=== PATIENT | male | born 1980 | race Caucasian/White ===

== ENCOUNTER 2017-04-05 10:39 | Emergency (ER) | payer OTHER ==
[~2017-04-05] VITALS: Ht 167.6 cm; Wt 76.2 kg
[~2017-04-05 10:39] MED LIST: CLONAZEPAM1 M2 PO; ELIQUIS2.5 M1 PO; HYDROXYZINE HCL25 MG PO; OXYCODONE HCL20 M2 PO; RELPAX40 M1 PO; ZOLPIDEM TARTRA10 M1 PO
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
[2017-04-05 12:39] LABS: ABSOLUTE BASOPHIL COUNT 0 /CUMM (0.0-0.2); ABSOLUTE EOSINOPHIL COUNT 0.3 /CUMM (0.0-0.7); ABSOLUTE GRANULOCYTE CT 6.5 /CUMM (1.4-6.5); ABSOLUTE LYMPH COUNT 1.8 /CUMM (1.2-3.4); ABSOLUTE MONOCYTE COUNT 0.3 /CUMM (0.10-0.60); BASOPHIL % 0.3 % (0.0-2.0); EOSINOPHIL % 3.6 % (0-5); GRANULOCYTE % 71.9 % (42.2-75.2); HEMATOCRIT 37.7 % (42-52); MEAN CORPUSCULAR HGB 27.8 PG (27.0-31.0); MEAN CORPUSCULAR HGB CONC 32.8 G/DL (33.0-37.0); MEAN CORPUSCULAR VOLUME 84.7 FL (80.0-94.0); MEAN PLATELET VOLUME 7.6 FL (7.4-10.4); PLATELET COUNT 252 /CUMM (130-400); RED BLOOD CELL CT 4.45 /CUMM (4.70-6.10); WHITE BLOOD CELL COUNT 9.1 /CUMM (4.8-10.8)
[2017-04-05 13:53] VITALS: BP 119/63
[2017-04-05] MEDS ORDERED: IBUPROFEN800 M1 PO (14:06)
[2017-04-05] MEDS ORDERED: GABAPENTIN300 M2 PO (14:07)
[2017-04-05] MEDS ORDERED: METHADONE HCL10 M1 PO (14:10)
== END 2017-04-05 14:12 ==
LOC: ERH 10:39
PROVIDERS: Emergency Medicine
DX: K62.5 Hemorrhage of anus and rectum (principal)

== ENCOUNTER 2018-02-18 15:01 | Inpatient (IN) | payer OTHER ==
[~2018-02-18] VITALS: Ht 167.6 cm; Wt 82.1 kg
[~2018-02-18 15:01] MED LIST changes: +CYCLOBENZAPRINE10 M1 PO; +GABAPENTIN300 M2 PO; +IBUPROFEN800 M1 PO; +METHADONE HCL10 M1 PO; +TYLENOL WITH C1 EACH PO
[2018-02-18 16:14] LABS: ABSOLUTE BASOPHIL COUNT 0 /CUMM (0.0-0.2); ABSOLUTE EOSINOPHIL COUNT 0.2 /CUMM (0.0-0.7); ABSOLUTE GRANULOCYTE CT 4.7 /CUMM (1.4-6.5); ABSOLUTE LYMPH COUNT 2.1 /CUMM (1.2-3.4); ABSOLUTE MONOCYTE COUNT 0.8 /CUMM (0.10-0.60); BASOPHIL % 0.3 % (0.0-2.0); EOSINOPHIL % 2.2 % (0-5); GRANULOCYTE % 60.5 % (42.2-75.2); HEMATOCRIT 41.1 % (42-52); MEAN CORPUSCULAR HGB 26.5 PG (27.0-31.0); MEAN CORPUSCULAR HGB CONC 31.8 G/DL (33.0-37.0); MEAN CORPUSCULAR VOLUME 83.2 FL (80.0-94.0); PLATELET COUNT 263 /CUMM (130-400); RBC DISTRIBUTION WIDTH 14.7 % (11.5-14.5); RED BLOOD CELL CT 4.94 /CUMM (4.70-6.10); WHITE BLOOD CELL COUNT 7.7 /CUMM (4.8-10.8)
--- NOTE | 2018-02-18 17:29 | ULTRASOUND REPORT ---
EXAMINATION: US SUPERFICIAL IMAGING, EXTREMITY, RIGHT CLINICAL INFORMATION: Erythema. IV drug use history. Evaluate necrotizing fasciitis versus abscess. Right posterior/lateral triceps/humeral induration. COMPARISON: None TECHNIQUE: Focused ultrasound of the patient's area of skin erythema, induration and eschar was performed with real-time assessment by the reading radiologist. FINDINGS: There is mild thickening and edema of the subcutaneous tissues, measuring up to 0.3 cm in thickness. No significant hyperemia is noted with color Doppler imaging. No superficial or deep focal fluid collection is seen. No definite dirty shadowing is identified to suspect air locules in the subcutaneous tissues, though evaluation for subcutaneous emphysema is limited by ultrasound. In the right axilla, no significant adenopathy is seen. IMPRESSION: Superficial edema and thickening of the subcutaneous tissues is seen without focal fluid collection. Findings are consistent with a cellulitis. As discussed above, no definite subcutaneous emphysema is identified, though evaluation is limited in this regard by ultrasound. Depending on clinical circumstances, consider plain film assessment for ruling out subcutaneous emphysema.
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
--- NOTE | 2018-02-18 20:41 | RADIOLOGY REPORT ---
EXAMINATION: XR HUMERUS, RIGHT CLINICAL INFORMATION: Pain and swelling. COMPARISON: None TECHNIQUE: AP and lateral views of the right humerus. FINDINGS: No osseous abnormality is seen. No gas is seen within the soft tissues. The imaged portions of the right lung are aerated. IMPRESSION: No acute osseous abnormality. No gas visible in the soft tissues of the right arm.
[2018-02-18 22:14] VITALS: BP 130/70
--- NOTE | 2018-02-19 06:04 | Admission Certification ---
Admission Certification Certification Statement - As attending physician, I certify that at the time of - admission, based on clinical presentation, severity of - symptoms, need for further diagnostic testing and - therapeutic interventions, and risk of adverse outcomes - without in-hospital treatment, in my clinical assessment, - this patient requires an acute hospital stay for a minimum - of two nights or longer. I have also considered psychsocial - factors such as support system, advanced age, financial - issues, cognitive issues, and failed out-patient treatments, - past re-admission history, safety of patient, and lack of - compliance as applicable. Specific rationale supporting this admission is: Right arm cellulitis
[2018-02-19 06:54] VITALS: BP 106/64
[2018-02-19 08:43] LABS: ABSOLUTE BASOPHIL COUNT 0 /CUMM (0.0-0.2); ABSOLUTE EOSINOPHIL COUNT 0.2 /CUMM (0.0-0.7); ABSOLUTE GRANULOCYTE CT 3.6 /CUMM (1.4-6.5); ABSOLUTE LYMPH COUNT 1.9 /CUMM (1.2-3.4); ABSOLUTE MONOCYTE COUNT 0.6 /CUMM (0.10-0.60); RED BLOOD CELL CT 4.17 /CUMM (4.70-6.10); WHITE BLOOD CELL COUNT 6.4 /CUMM (4.8-10.8)
[2018-02-19 08:57] LABS: BASOPHIL % 0.4 % (0.0-2.0); EOSINOPHIL % 3.1 % (0-5); GRANULOCYTE % 56.7 % (42.2-75.2); MEAN CORPUSCULAR HGB 27.8 PG (27.0-31.0); MEAN CORPUSCULAR HGB CONC 33.6 G/DL (33.0-37.0); MEAN CORPUSCULAR VOLUME 82.7 FL (80.0-94.0); MEAN PLATELET VOLUME 7.3 FL (7.4-10.4); PLATELET COUNT 225 /CUMM (130-400); RBC DISTRIBUTION WIDTH 15.1 % (11.5-14.5)
[2018-02-19 09:12] LABS: HEMATOCRIT 34.5 % (42-52)
--- NOTE | 2018-02-19 09:28 | PN- Housestaff ---
Subjective Follow-up For: Cellulitis vs bug bite necrosis Subjective: No acute events overnight. Patient states that the thinks the pain erythema is getting larger. States that the dark erythema around the black eschar is tender to palpation. Requesting methadone Review of Systems Constitutional: Reports: see HPI. Objective Last 24 Hrs of Vital Signs/I&O Vital Signs Date Time Temp Pulse Resp B/P B/P Pulse O2 O2 Flow FiO2 Mean Ox Delivery Rate 02/19 1455 98.1 90 20 118/76 94 Room Air 02/19 0654 98.4 65 18 106/64 97 Trach Mask 02/18 2214 98.0 75 20 130/70 94 Room Air 02/18 2149 Room Air 02/18 2107 97.8 72 18 141/89 96 Room Air Intake & Output 02/19 1600 02/19 0800 02/19 0000 Intake Total 240 250 Output Total Balance 240 250 Intake, IV 250 Intake, Oral 240 Patient 181 lb Weight Weight Reported by Patient Measurement Method Physical Exam General Appearance: Alert, Oriented X3, Cooperative, No Acute Distress Skin: 2.5" x 1.5" circular black eschar in the right upper extremity, IVDU track zimmer at right elbow Cardiovascular: Regular Rate, Normal S1, Normal S2 Lungs: Clear to Auscultation, Normal Air Movement Abdomen: Normal Bowel Sounds, Soft, No Tenderness Extremities: 2+ radial pulses Current Medications: Current Medications Sig/Shelbie Start time Last Medication Dose Route Stop Time Status Admin Acetaminophen 650 MG Q4P PRN 02/19 0345 AC PO Acetaminophen 1,000 MG ONCE ONE 02/18 2030 DC 02/18 N/A 1 UNIT IV 02/18 Acetaminophen 0 .STK-MED ONE 02/19 2028 DC IV Ampicillin Sodium/ 3,000 MG Q6 02/19 1800 AC Sulbactam Sodium IV Sodium Chloride 100 ML Ampicillin Sodium/ 3,000 MG Q6 02/19 0430 DC 02/19 Sulbactam Sodium IV 1201 Sodium Chloride 100 ML Ampicillin Sodium/ 3,000 MG ONCE ONE 02/19 2000 DC 02/18 Sulbactam Sodium IV 02/18 Sodium Chloride 100 ML Ampicillin Sodium/ 0 .STK-MED ONE 02/18 1959 DC Sulbactam Sodium .ROUTE Clonazepam 1 MG AT BEDTIME 02/19 2200 AC PO 02/26 2159 Enoxaparin Sodium 40 MG DAILY 02/19 1000 AC 02/19 SC 1201 Gabapentin 300 MG TID 02/19 1000 AC 02/19 PO 1324 Ketorolac 0 .STK-MED ONE 02/19 2044 DC Tromethamine .ROUTE Ketorolac 30 MG ONCE ONE 02/19 2000 DC 02/18 Tromethamine IV 02/18 Methadone HCl 65 MG DAILY 02/20 0700 AC PO Methadone HCl 65 MG ONCE ONE 02/19 1100 DC 02/19 PO 02/19 1101 1200 Nicotine 21 MG DAILY 02/19 1100 AC 02/19 TOP 1201 Tramadol HCl 50 MG Q6 02/19 0600 DC PO Tramadol HCl 50 MG Q6 PRN 02/19 0515 AC 02/19 PO 1200 Tramadol HCl 50 MG Q4 PRN 02/19 0200 AC 02/19 PO 0535 Tramadol HCl 50 MG ONCE ONE 02/18 2245 DC 02/18 PO 02/18 2246 2247 Last 24 Hrs of Lab/Herman Results Last 24 Hrs of Labs/Mics: Laboratory Tests 02/19/18 1436: Rheum Factor Semi-Quant Pending 02/19/18 1436: ESR Westergren Pending, AWILDA Titer Pending, Anti-Nuclear Antibody Pending, Lyme Disease Antibody Pending 02/19/18 0605: Anion Gap 12, Estimated GFR > 60, BUN/Creatinine Ratio 28.8 H, Creatine Kinase 21 L, CBC w Diff NO MAN DIFF REQ, RBC 4.17 L, MCV 82.7, MCH 27.8, MCHC 33.6, RDW 15.1 H, MPV 7.3 L, Gran % 56.7, Lymphocytes % 30.1, Monocytes % 9.7 H, Eosinophils % 3.1, Basophils % 0.4, Absolute Granulocytes 3.6, Absolute Lymphocytes 1.9, Absolute Monocytes 0.6, Absolute Eosinophils 0.2, Absolute Basophils 0, Hepatitis A IgM Ab NONREACTIVE, Hep Bs Antigen NONREACTIVE, Hep B Core IgM Ab Conf NONREACTIVE, Hepatitis C Antibody NONREACTIVE, HIV 1&2 Ab Western Blot NONREACTIVE 02/19/18 0025: Urine Opiates Screen > 4000.00 H, Methadone Screen > 735 H, Barbiturate Screen < 60, Ur Phencyclidine Scrn < 6.00, Amphetamines Screen 114, U Benzodiazepines Scrn < 85, Urine Cocaine Screen < 50, Urine Cannabis Screen < 5.00 02/18/18 1857: Lactic Acid Cancelled Assessment/Plan Assessment: Mr. Charles is a 37 yo m with a PMH significant for IV drug abuse on methadone ([facility]), chronic pain disorder, depression, anxiety, OA, disc herniation who presents to the ED with a suspected insect bite vs IV drug use causing necrosis of his lateral RUE. Problem list: Right arm cellulitis vs necrosis - maybe secondary to insect bite vs IV drug use Plan: -ultrasound did not reveal any fluid collection, x-ray does not show any bone changes or tissue gas -Follow-up surgery consult for biopsy of eschar: path+ routine, AFB, fungal -cont IV Unasyn -Methadone confirmed at 65 mg daily -start nicotine patch, cont clonazepam -Follow-up Lyme titer, ESR, rheumatoid factor, and AWILDA -f/u blood cx -Hepatitis and HIV negative -Consider MRI if patient reports right hip pain s/p right hip replacement to evaluate for spreading of infection Diet: Heart healthy DVT ppx: sc Enoxaparin Code: FULL Problem List: 1. Cellulitis Pain Ratin Pain Location: r arm Pain Goal: Pain 4 or less Pain Plan: pain pathway Tomorrow's Labs & Rationales: cbc
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
--- NOTE | 2018-02-19 12:33 | PN- Att Addend ---
Attending Addendum Attending Brief Note Patient seen and examined, feels the same. The right arm necrosis and cellulitis area still looks bad. Vital Signs Date Time Temp Pulse Resp B/P B/P Pulse O2 O2 Flow FiO2 Mean Ox Delivery Rate 02/19 0654 98.4 65 18 106/64 97 Trach Mask 02/18 2214 98.0 75 20 130/70 94 Room Air 02/18 2149 Room Air 02/18 2107 97.8 72 18 141/89 96 Room Air 02/18 1557 98.9 98 16 97 Room Air one exam; aox3, nad. cv; s1,s2, rrr resp; clear abd; soft, nt, bs+ ext; no edema skin: + indurated, erythematous area with warmth and central necrotic looking skin on right arm lateral side. Laboratory Tests 02/19 02/19 0605 0025 Chemistry Sodium (137 - 145 mmol/L) 143 Potassium (3.5 - 5.1 mmol/L) 4.0 Chloride (98 - 107 mmol/L) 103 Carbon Dioxide (22 - 30 mmol/L) 28 Anion Gap (5 - 16) 12 BUN (9 - 20 mg/dL) 23 H Creatinine (0.7 - 1.2 mg/dL) 0.8 Estimated GFR (>60 ml/min) > 60 BUN/Creatinine Ratio (7 - 25 %) 28.8 H Creatine Kinase (55 - 170 U/L) 21 L Hematology CBC w Diff NO MAN DIFF REQ WBC (4.8 - 10.8 /CUMM) 6.4 RBC (4.70 - 6.10 /CUMM) 4.17 L Hgb (14.0 - 18.0 G/DL) 11.6 L Hct (42 - 52 %) 34.5 L MCV (80.0 - 94.0 FL) 82.7 MCH (27.0 - 31.0 PG) 27.8 MCHC (33.0 - 37.0 G/DL) 33.6 RDW (11.5 - 14.5 %) 15.1 H Plt Count (130 - 400 /CUMM) 225 MPV (7.4 - 10.4 FL) 7.3 L Gran % (42.2 - 75.2 %) 56.7 Lymphocytes % (20.5 - 51.1 %) 30.1 Monocytes % (1.7 - 9.3 %) 9.7 H Eosinophils % (0 - 5 %) 3.1 Basophils % (0.0 - 2.0 %) 0.4 Absolute Granulocytes (1.4 - 6.5 /CUMM) 3.6 Absolute Lymphocytes (1.2 - 3.4 /CUMM) 1.9 Absolute Monocytes (0.10 - 0.60 /CUMM) 0.6 Absolute Eosinophils (0.0 - 0.7 /CUMM) 0.2 Absolute Basophils (0.0 - 0.2 /CUMM) 0 Serology Hepatitis A IgM Ab (NONREACTIVE) NONREACTIVE Hep Bs Antigen (NONREACTIVE) NONREACTIVE Hep B Core IgM Ab Conf (NONREACTIVE) NONREACTIVE Hepatitis C Antibody (NONREACTIVE) NONREACTIVE HIV 1&2 Ab Western Blot (NONREACTIVE) NONREACTIVE Toxicology Urine Opiates Screen (>2000 NG/ML) > 4000.00 H Methadone Screen (>300 NG/ML) > 735 H Barbiturate Screen (>200 NG/ML) < 60 Ur Phencyclidine Scrn (>25 NG/ML) < 6.00 Amphetamines Screen (>1000 NG/ML) 114 U Benzodiazepines Scrn (>200 NG/ML) < 85 Urine Cocaine Screen (>300 NG/ML) < 50 Urine Cannabis Screen (>50 NG/ML) < 5.00 02/18 02/18 1857 1605 Chemistry Sodium (137 - 145 mmol/L) 144 Potassium (3.5 - 5.1 mmol/L) 3.8 Chloride (98 - 107 mmol/L) 102 Carbon Dioxide (22 - 30 mmol/L) 26 Anion Gap (5 - 16) 15 BUN (9 - 20 mg/dL) 21 H Creatinine (0.7 - 1.2 mg/dL) 0.9 Estimated GFR (>60 ml/min) > 60 BUN/Creatinine Ratio (7 - 25 %) 23.3 Glucose (65 - 99 mg/dL) 104 H Lactic Acid Cancelled Calcium (8.4 - 10.2 mg/dL) 9.6 Total Bilirubin (0.2 - 1.3 mg/dL) 0.5 AST (17 - 59 U/L) 20 ALT (21 - 72 U/L) 43 Alkaline Phosphatase (< 127 U/L) 120 Creatine Kinase (55 - 170 U/L) 33 L Total Protein (6.3 - 8.2 g/dL) 8.3 H Albumin (3.5 - 5.0 g/dL) 4.3 Globulin (1.9 - 4.2 gm/dL) 4.0 Albumin/Globulin Ratio (1.1 - 2.2 %) 1.1 Hematology CBC w Diff NO MAN DIFF REQ WBC (4.8 - 10.8 /CUMM) 7.7 RBC (4.70 - 6.10 /CUMM) 4.94 Hgb (14.0 - 18.0 G/DL) 13.1 L Hct (42 - 52 %) 41.1 L MCV (80.0 - 94.0 FL) 83.2 MCH (27.0 - 31.0 PG) 26.5 L MCHC (33.0 - 37.0 G/DL) 31.8 L RDW (11.5 - 14.5 %) 14.7 H Plt Count (130 - 400 /CUMM) 263 MPV (7.4 - 10.4 FL) 7.0 L Gran % (42.2 - 75.2 %) 60.5 Lymphocytes % (20.5 - 51.1 %) 27.2 Monocytes % (1.7 - 9.3 %) 9.8 H Eosinophils % (0 - 5 %) 2.2 Basophils % (0.0 - 2.0 %) 0.3 Absolute Granulocytes (1.4 - 6.5 /CUMM) 4.7 Absolute Lymphocytes (1.2 - 3.4 /CUMM) 2.1 Absolute Monocytes (0.10 - 0.60 /CUMM) 0.8 H Absolute Eosinophils (0.0 - 0.7 /CUMM) 0.2 Absolute Basophils (0.0 - 0.2 /CUMM) 0 A/P; 37 y/o M with pmh sig for nicotine dependence (1PPD x > 20 yrs), IV drug abuse on methadone ([facility]), chronic pain disorder, depression, anxiety, OA, disc herniation, admitted with right arm cellulitis. Patient also has necrotic-looking area in the center. Currently on Unasyn. Appreciate infectious disease input. Ultrasound was negative for any abscess. Discussed with Dr. Contreras. We'll follow his recommendations about checking But he also recommends getting a skin biopsy. Please consult surgery. Please confirm the dose of his methadone from his methadone clinic. Agree with using tramadol for pain management. We'll follow-up on the blood cultures. DVT px; Lovenox.
[2018-02-19 14:55] VITALS: BP 118/76
[2018-02-19 21:59] VITALS: BP 130/64
[2018-02-20 06:48] VITALS: BP 124/62
[2018-02-20 08:15] LABS: ABSOLUTE BASOPHIL COUNT 0 /CUMM (0.0-0.2); ABSOLUTE EOSINOPHIL COUNT 0.2 /CUMM (0.0-0.7); ABSOLUTE GRANULOCYTE CT 3.8 /CUMM (1.4-6.5); ABSOLUTE LYMPH COUNT 2.2 /CUMM (1.2-3.4); ABSOLUTE MONOCYTE COUNT 0.5 /CUMM (0.10-0.60); BASOPHIL % 0.5 % (0.0-2.0); EOSINOPHIL % 3.1 % (0-5); GRANULOCYTE % 56.7 % (42.2-75.2); HEMATOCRIT 32.6 % (42-52); MEAN CORPUSCULAR HGB 27.5 PG (27.0-31.0); MEAN CORPUSCULAR VOLUME 83.3 FL (80.0-94.0); MEAN PLATELET VOLUME 7.1 FL (7.4-10.4); PLATELET COUNT 226 /CUMM (130-400); RBC DISTRIBUTION WIDTH 14.9 % (11.5-14.5); RED BLOOD CELL CT 3.91 /CUMM (4.70-6.10); WHITE BLOOD CELL COUNT 6.8 /CUMM (4.8-10.8)
--- NOTE | 2018-02-20 10:57 | PN- Housestaff ---
Subjective Follow-up For: Cellulitis vs bug bite necrosis Subjective: No acute events overnight. Patient states that the hardness and swelling are increasing. States that the symptoms are getting worse. Review of Systems Constitutional: Reports: see HPI. Objective Last 24 Hrs of Vital Signs/I&O Vital Signs Date Time Temp Pulse Resp B/P B/P Pulse O2 O2 Flow FiO2 Mean Ox Delivery Rate 02/20 1445 97.9 99 20 150/78 95 Room Air 02/20 0648 97.9 79 18 124/62 91 02/19 2159 98.6 79 20 130/64 93 Room Air Intake & Output 02/20 1600 02/20 0800 02/20 0000 Intake Total 850 240 480 Output Total Balance 850 240 480 Intake, IV 250 Intake, Oral 600 240 480 Number 1 Bowel Movements Physical Exam General Appearance: Alert, Oriented X3, Cooperative, Mild Distress Skin: 2.5 x 1.5" circular eschar and right upper extremity. worsening dark dusky redness around black eschar. Eschar now blistering IVDU track zimmer of right anterior elbow. Cardiovascular: Regular Rate, Normal S1, Normal S2 Lungs: Clear to Auscultation, Normal Air Movement Abdomen: Normal Bowel Sounds, Soft, No Tenderness Extremities: 2+ radial pulses Current Medications: Current Medications Sig/Shelbie Start time Last Medication Dose Route Stop Time Status Admin Acetaminophen 650 MG Q4P PRN 02/19 0345 AC PO Ampicillin Sodium/ 3,000 MG Q6 02/19 1800 DC 02/20 Sulbactam Sodium IV 1352 Sodium Chloride 100 ML Clonazepam 1 MG AT BEDTIME 02/19 2200 AC 02/19 PO 02/26 2159 2330 Enoxaparin Sodium 40 MG DAILY 02/19 1000 AC 02/20 SC 0900 Gabapentin 300 MG TID 02/19 1000 AC 02/20 PO 0859 Levofloxacin 750 MG 2200 02/20 2200 AC PO Methadone HCl 65 MG DAILY 02/20 0700 AC 02/20 PO 0521 Nicotine 21 MG DAILY 02/19 1100 AC 02/20 TOP 0900 Patient Medication 1 ED ONE ONE 02/20 1130 DC 02/20 Teaching ED 02/20 1131 1355 Tramadol HCl 50 MG Q6 PRN 02/19 0515 AC 02/20 PO 1355 Tramadol HCl 50 MG Q4 PRN 02/19 0200 DC 02/19 PO 0535 Last 24 Hrs of Lab/Herman Results Last 24 Hrs of Labs/Mics: Laboratory Tests 02/20/18 0600: CBC w Diff NO MAN DIFF REQ, RBC 3.91 L, MCV 83.3, MCH 27.5, MCHC 33.0, RDW 14.9 H, MPV 7.1 L, Gran % 56.7, Lymphocytes % 31.9, Monocytes % 7.8, Eosinophils % 3.1, Basophils % 0.5, Absolute Granulocytes 3.8, Absolute Lymphocytes 2.2, Absolute Monocytes 0.5, Absolute Eosinophils 0.2, Absolute Basophils 0 Assessment/Plan Assessment: Mr. Charles is a 37 yo m with a PMH significant for IV drug abuse on methadone ([facility]), chronic pain disorder, depression, anxiety, OA, disc herniation who presents to the ED with a suspected insect bite vs IV drug use causing necrosis of his lateral RUE. Problem list: Right arm cellulitis vs necrosis - maybe secondary to insect bite vs IV drug use ?ecthyma gangrenosum Plan: -Follow-up surgery consult for biopsy of eschar: path+ routine, AFB, fungal -f/u RF -Discontinued IV Unasyn. Start levofloxacin after biopsy -ultrasound did not reveal any fluid collection, x-ray does not show any bone changes or tissue gas -Methadone confirmed at 65 mg daily -start nicotine patch, cont clonazepam, gabapentin -Negative Lyme titer, ESR, rheumatoid factor, and AWILDA -f/u blood cx -Hepatitis and HIV negative -Consider MRI if patient reports right hip pain s/p right hip replacement to evaluate for spreading of infection Diet: Heart healthy DVT ppx: sc Enoxaparin Code: FULL Problem List: 1. Cellulitis Pain Ratin Pain Location: R arm Pain Goal: Pain 4 or less Pain Plan: pain pathway Tomorrow's Labs & Rationales: cbc bep
--- NOTE | 2018-02-20 14:00 | PN- Att Addend ---
Attending Addendum Attending Brief Note Patient seen and examined, not improved. He is very concerned that the eschar looking skin on his arm is now blistering. Vital Signs Date Time Temp Pulse Resp B/P B/P Pulse O2 O2 Flow FiO2 Mean Ox Delivery Rate 02/20 0648 97.9 79 18 124/62 91 02/19 2159 98.6 79 20 130/64 93 Room Air 02/19 1455 98.1 90 20 118/76 94 Room Air on exam; aox3, nad. cv; s1,s2, rrr resp; clear abd; soft, nt, bs+ ext; no edema skin: + indurated, erythematous area with warmth and central necrotic looking skin on right arm lateral side which is now blistering. Laboratory Tests 02/20 02/19 0600 1436 Hematology CBC w Diff NO MAN DIFF REQ WBC (4.8 - 10.8 /CUMM) 6.8 RBC (4.70 - 6.10 /CUMM) 3.91 L Hgb (14.0 - 18.0 G/DL) 10.8 L Hct (42 - 52 %) 32.6 L MCV (80.0 - 94.0 FL) 83.3 MCH (27.0 - 31.0 PG) 27.5 MCHC (33.0 - 37.0 G/DL) 33.0 RDW (11.5 - 14.5 %) 14.9 H Plt Count (130 - 400 /CUMM) 226 MPV (7.4 - 10.4 FL) 7.1 L Gran % (42.2 - 75.2 %) 56.7 Lymphocytes % (20.5 - 51.1 %) 31.9 Monocytes % (1.7 - 9.3 %) 7.8 Eosinophils % (0 - 5 %) 3.1 Basophils % (0.0 - 2.0 %) 0.5 Absolute Granulocytes (1.4 - 6.5 /CUMM) 3.8 Absolute Lymphocytes (1.2 - 3.4 /CUMM) 2.2 Absolute Monocytes (0.10 - 0.60 /CUMM) 0.5 Absolute Eosinophils (0.0 - 0.7 /CUMM) 0.2 Absolute Basophils (0.0 - 0.2 /CUMM) 0 Immunology Rheum Factor Semi-Quant (<12 IU/Ml) < 8.6 02/19 1436 Hematology ESR Westergren (0 - 10 MM) 65 H Immunology AWILDA Titer ND Anti-Nuclear Antibody (NEG,1:40) NEG 1:40 IFA ASSAY Serology Lyme Disease Antibody (RATIO) 0.18 A/P: 37 y/o M with pmh sig for nicotine dependence (1PPD x > 20 yrs), IV drug abuse on methadone ([facility]), chronic pain disorder, depression, anxiety, OA, disc herniation, admitted with right arm cellulitis with necrosis and eschar looking 80 in the center which is now blistering. Lyme antibody, AWILDA, rheumatoid factor, HIV antibody, Lyme antibody, hepatitis panel negative. Patient currently on Unasyn. So far blood cultures are negative. White count to justice normal and patient amends afebrile. Surgical consult was called yesterday but still elevated. We'll call them again today. Patient will need skin biopsy per infectious disease. We'll discuss with infectious disease about further recommendations. Continue current pain management. Patient on Lovenox for DVT prophylaxis.
[2018-02-20 14:45] VITALS: BP 150/78
--- NOTE | 2018-02-20 15:20 | PN- Infect Dx ---
Subjective Subjective: Afebrile. He complains of increased discomfort in the right upper extremity Objective Last 24 Hrs of Vital Signs/I&O Vital Signs Date Time Temp Pulse Resp B/P B/P Pulse O2 O2 Flow FiO2 Mean Ox Delivery Rate 02/20 1445 97.9 99 20 150/78 95 Room Air 02/20 0648 97.9 79 18 124/62 91 02/19 2159 98.6 79 20 130/64 93 Room Air Intake & Output 02/20 1600 02/20 0800 02/20 0000 Intake Total 850 240 480 Output Total Balance 850 240 480 Intake, IV 250 Intake, Oral 600 240 480 Number 1 Bowel Movements Physical Exam Other Physical Findings: He appears comfortable in no acute distress Extremities necrotic lesion, with the development of bullae, over the right triceps area with surrounding erythema and edema, which is tender to palpation Results Last 24 Hours of Lab Results: Laboratory Tests 02/20 0600 Hematology CBC w Diff NO MAN DIFF REQ WBC (4.8 - 10.8 /CUMM) 6.8 RBC (4.70 - 6.10 /CUMM) 3.91 L Hgb (14.0 - 18.0 G/DL) 10.8 L Hct (42 - 52 %) 32.6 L MCV (80.0 - 94.0 FL) 83.3 MCH (27.0 - 31.0 PG) 27.5 MCHC (33.0 - 37.0 G/DL) 33.0 RDW (11.5 - 14.5 %) 14.9 H Plt Count (130 - 400 /CUMM) 226 MPV (7.4 - 10.4 FL) 7.1 L Gran % (42.2 - 75.2 %) 56.7 Lymphocytes % (20.5 - 51.1 %) 31.9 Monocytes % (1.7 - 9.3 %) 7.8 Eosinophils % (0 - 5 %) 3.1 Basophils % (0.0 - 2.0 %) 0.5 Absolute Granulocytes (1.4 - 6.5 /CUMM) 3.8 Absolute Lymphocytes (1.2 - 3.4 /CUMM) 2.2 Absolute Monocytes (0.10 - 0.60 /CUMM) 0.5 Absolute Eosinophils (0.0 - 0.7 /CUMM) 0.2 Absolute Basophils (0.0 - 0.2 /CUMM) 0 Last 24 Hours of Herman Results: Blood cultures February 18 negative Assessment/Plan ID Impression: Clinically stable, with temperatures and white blood cell count remaining normal , on empiric treatment with Unasyn now Day 2 for a necrotic, inflammatory lesion in the right upper extremity, of unclear etiology, with increasing inflammation noted over the last 24 hours. This may represent ecthyma gangrenosum, which is typically secondary to Pseudomonas, but his blood cultures remain negative. Pyoderma gangrenosum is also possible, particularly with the tenderness and lack of fever and leukocytosis. Lyme disease seems less likely though a negative Lyme titer is often seen in early disease. Necrotizing fasciitis also seems less likely. I have spoken with Surgery who will evaluate him later today and perform a skin biopsy. Suggestion: 1. Await surgical evaluation for skin biopsy, which should be submitted for pathology and culture (routine, AFB and fungal) 2. Would check a rheumatoid factor 3. Discontinue Unasyn 4. Begin Levaquin 750 mg po every 24 hours after the skin biopsy is done
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
[2018-02-20 22:00] VITALS: BP 146/99
[2018-02-21 06:34] VITALS: BP 121/73
--- NOTE | 2018-02-21 07:27 | PN- Housestaff ---
Khris ENCINAS,[facility] 02/21/18 0727: Subjective Follow-up For: ?cellulitis vs bug bite necrosis Subjective: Pain stepped on a needle / stapler last night. States his arm is getting worst. States boiling is worst, dusky redness is enlarging and further increase in swelling of his R elbow. Review of Systems Constitutional: Reports: see HPI. Objective Last 24 Hrs of Vital Signs/I&O Vital Signs Date Time Temp Pulse Resp B/P B/P Pulse O2 O2 Flow FiO2 Mean Ox Delivery Rate 02/21 0634 98.0 72 18 121/73 92 Room Air 02/20 2200 98.3 90 20 146/99 94 Room Air 02/20 1445 97.9 99 20 150/78 95 Room Air Physical Exam General Appearance: Alert, Oriented X3, Cooperative Cardiovascular: Regular Rate, Normal S1, Normal S2 Lungs: Clear to Auscultation, Normal Air Movement Abdomen: Normal Bowel Sounds, Soft, No Tenderness Extremities: increased red duskyness of R arm, increase boiling, increased swelling of R elbow. warm to palpation Vascular: 1+ R radial and 2+ L radial Current Medications: Current Medications Sig/Shelbie Start time Last Medication Dose Route Stop Time Status Admin Acetaminophen 650 MG Q4P PRN 02/19 0345 AC PO Ampicillin Sodium/ 3,000 MG Q6 02/19 1800 DC 02/20 Sulbactam Sodium IV 1352 Sodium Chloride 100 ML Clonazepam 1 MG AT BEDTIME 02/19 2200 AC 02/20 PO 02/26 2159 2125 Enoxaparin Sodium 40 MG DAILY 02/19 1000 AC 02/21 SC 0938 Gabapentin 300 MG TID 02/19 1000 AC 02/21 PO 0937 Levofloxacin 750 MG 2200 02/20 2200 AC 02/20 PO 2126 Methadone HCl 65 MG DAILY 02/20 0700 AC 02/21 PO 0527 Nicotine 21 MG DAILY 02/19 1100 AC 02/21 TOP 0939 Tramadol HCl 50 MG Q6 PRN 02/19 0515 AC 02/21 PO 1042 Last 24 Hrs of Lab/Herman Results Last 24 Hrs of Labs/Mics: Laboratory Tests 02/21/18 0745: Anion Gap 11, Estimated GFR > 60, BUN/Creatinine Ratio 19.0, CBC w Diff NO MAN DIFF REQ, RBC 3.90 L, MCV 83.5, MCH 27.5, MCHC 32.9 L, RDW 14.2, MPV 6.9 L, Gran % 60.8, Lymphocytes % 29.4, Monocytes % 7.1, Eosinophils % 2.3, Basophils % 0.4, Absolute Granulocytes 4.5, Absolute Lymphocytes 2.2, Absolute Monocytes 0.5 , Absolute Eosinophils 0.2, Absolute Basophils 0, Rheum Factor Semi-Quant < 8.6 Microbiology 02/21 1940 EXTREMITIE: AFB Culture with PCR Identification - CAN Cancelled: SPECIMEN QNS 02/21 1940 EXTREMITIE: AFB Smear Concentration - CAN Cancelled: SPECIMEN QNS 02/21 1940 EXTREMITIE: Culture & Sensitivity - RES 02/21 1940 EXTREMITIE: Gram Stain - RES 02/21 1940 EXTREMITIE: Fungal Culture - CAN Cancelled: DUPLICATED 02/21 1940 EXTREMITIE: Fungal Culture - CAN Cancelled: SPECIMEN QNS 02/20 1939 EXTREMITIE: Gross Specimen Examination - CAN Cancelled: DUPLICATE ORDERS; NOT FROM OR. 02/20 1939 EXTREMITIE: Gram Stain - CAN Cancelled: DUPLICATE ORDERS; NOT FROM OR. Assessment/Plan Assessment: Mr. Charles is a 37 yo m with a PMH significant for IV drug abuse on methadone ([facility]), chronic pain disorder, depression, anxiety, OA, disc herniation who presents to the ED with a suspected insect bite vs IV drug use causing necrosis of his lateral RUE. Problem list: Right arm cellulitis vs necrosis - maybe secondary to insect bite vs IV drug use ?ecthyma gangrenosum Plan: Patient leaeving [place]. Given levofloxacin x4 days to complete 7 day course just in case. Pt will be going to [facility]. -contacted dermatology who thought the differential included coagulopathy from levamisole via IVDU, burn, brown recluse bite. stated dusky red is more likely capillaritis/vasculitis rather than cellulitis. -biopsy cx negative thus far, -f/u biopsy path -RF negative -Discontinued IV Unasyn. continue levofloxacin -ultrasound did not reveal any fluid collection, x-ray does not show any bone changes or tissue gas -Methadone confirmed at 65 mg daily -start nicotine patch, cont clonazepam, gabapentin -Negative Lyme titer, ESR, rheumatoid factor, and AWILDA -f/u blood cx -Hepatitis and HIV negative -Consider MRI if patient reports right hip pain s/p right hip replacement to evaluate for spreading of infection Diet: Heart healthy DVT ppx: sc Enoxaparin Code: FULL Problem List: 1. Cellulitis Pain Ratin Pain Location: R arm Pain Goal: Pain 4 or less Pain Plan: pain pathway Tomorrow's Labs & Rationales: cbc Alfred ENCINAS,Yasmeen 02/21/18 1211: Attending MD Review Statement Attending Statement Attending MD Statement: examined this patient, discuss w/resident/PA/IMPROVEMENT SPECIALIST, agreed w/resident/PA/IMPROVEMENT SPECIALIST, discussed with family, reviewed EMR data (avail), discussed with nursing, discussed with case mgmt, reviewed images, amended to note Attending Assessment/Plan: Patient seen and examined, not happy as he thinks he has not improved at all. he is still c/o pain in his rue. Vital Signs Date Time Temp Pulse Resp B/P B/P Pulse O2 O2 Flow FiO2 Mean Ox Delivery Rate 02/21 0634 98.0 72 18 121/73 92 Room Air 02/20 2200 98.3 90 20 146/99 94 Room Air 02/20 1445 97.9 99 20 150/78 95 Room Air on exam; aox3, nad. cv; s1,s2, rrr resp; clear abd; soft, nt, bs+ ext; no edema skin: + indurated, erythematous area with warmth and central necrotic looking skin on right arm lateral side which is now blistering. Laboratory Tests 02/21 0745 Chemistry Sodium (137 - 145 mmol/L) 141 Potassium (3.5 - 5.1 mmol/L) 4.2 Chloride (98 - 107 mmol/L) 103 Carbon Dioxide (22 - 30 mmol/L) 28 Anion Gap (5 - 16) 11 BUN (9 - 20 mg/dL) 19 Creatinine (0.7 - 1.2 mg/dL) 1.0 Estimated GFR (>60 ml/min) > 60 BUN/Creatinine Ratio (7 - 25 %) 19.0 Hematology CBC w Diff NO MAN DIFF REQ WBC (4.8 - 10.8 /CUMM) 7.4 RBC (4.70 - 6.10 /CUMM) 3.90 L Hgb (14.0 - 18.0 G/DL) 10.7 L Hct (42 - 52 %) 32.6 L MCV (80.0 - 94.0 FL) 83.5 MCH (27.0 - 31.0 PG) 27.5 MCHC (33.0 - 37.0 G/DL) 32.9 L RDW (11.5 - 14.5 %) 14.2 Plt Count (130 - 400 /CUMM) 239 MPV (7.4 - 10.4 FL) 6.9 L Gran % (42.2 - 75.2 %) 60.8 Lymphocytes % (20.5 - 51.1 %) 29.4 Monocytes % (1.7 - 9.3 %) 7.1 Eosinophils % (0 - 5 %) 2.3 Basophils % (0.0 - 2.0 %) 0.4 Absolute Granulocytes (1.4 - 6.5 /CUMM) 4.5 Absolute Lymphocytes (1.2 - 3.4 /CUMM) 2.2 Absolute Monocytes (0.10 - 0.60 /CUMM) 0.5 Absolute Eosinophils (0.0 - 0.7 /CUMM) 0.2 Absolute Basophils (0.0 - 0.2 /CUMM) 0 Immunology Rheum Factor Semi-Quant (<12 IU/Ml) < 8.6 A/P: 37 y/o M with pmh sig for nicotine dependence (1PPD x > 20 yrs), IV drug abuse on methadone ([facility]), chronic pain disorder, depression, anxiety, OA, disc herniation, admitted with right arm cellulitis with necrosis and eschar looking area in the center which is now blistering. S/P skin Bx yesterday. So all Cx NGTD. Phone consultation with Derm. DD includes coagulopathy, burn or spider bite. hypercoag w/u was recommended. Abx have been switched to Levaquin for pseumonal coverage for possible Ecthyma Gangrenosum. Continue other current meds. DVt px: Lovenox. Patient wants to get discharged and go to [facility] to get admitted over there.
[2018-02-21 08:54] LABS: ABSOLUTE BASOPHIL COUNT 0 /CUMM (0.0-0.2); ABSOLUTE EOSINOPHIL COUNT 0.2 /CUMM (0.0-0.7); ABSOLUTE GRANULOCYTE CT 4.5 /CUMM (1.4-6.5); ABSOLUTE LYMPH COUNT 2.2 /CUMM (1.2-3.4); ABSOLUTE MONOCYTE COUNT 0.5 /CUMM (0.10-0.60); BASOPHIL % 0.4 % (0.0-2.0); EOSINOPHIL % 2.3 % (0-5); GRANULOCYTE % 60.8 % (42.2-75.2); HEMATOCRIT 32.6 % (42-52); MEAN CORPUSCULAR HGB 27.5 PG (27.0-31.0); MEAN CORPUSCULAR HGB CONC 32.9 G/DL (33.0-37.0); MEAN CORPUSCULAR VOLUME 83.5 FL (80.0-94.0); MEAN PLATELET VOLUME 6.9 FL (7.4-10.4); PLATELET COUNT 239 /CUMM (130-400); RBC DISTRIBUTION WIDTH 14.2 % (11.5-14.5); WHITE BLOOD CELL COUNT 7.4 /CUMM (4.8-10.8)
--- NOTE | 2018-02-21 12:48 | PN- Infect Dx ---
Subjective Subjective: Afebrile. He continues to complain of pain in the right upper extremity. Objective Last 24 Hrs of Vital Signs/I&O Vital Signs Date Time Temp Pulse Resp B/P B/P Pulse O2 O2 Flow FiO2 Mean Ox Delivery Rate 02/21 0634 98.0 72 18 121/73 92 Room Air 02/20 2200 98.3 90 20 146/99 94 Room Air 02/20 1445 97.9 99 20 150/78 95 Room Air Physical Exam Other Physical Findings: He appears comfortable in no acute distress Extremities necrotic lesion with bullae in the right triceps area unchanged, with mild surrounding erythema and decreased edema, mildly tender to palpation Results Last 24 Hours of Lab Results: Laboratory Tests 02/21 0745 Chemistry Sodium (137 - 145 mmol/L) 141 Potassium (3.5 - 5.1 mmol/L) 4.2 Chloride (98 - 107 mmol/L) 103 Carbon Dioxide (22 - 30 mmol/L) 28 Anion Gap (5 - 16) 11 BUN (9 - 20 mg/dL) 19 Creatinine (0.7 - 1.2 mg/dL) 1.0 Estimated GFR (>60 ml/min) > 60 BUN/Creatinine Ratio (7 - 25 %) 19.0 Hematology CBC w Diff NO MAN DIFF REQ WBC (4.8 - 10.8 /CUMM) 7.4 RBC (4.70 - 6.10 /CUMM) 3.90 L Hgb (14.0 - 18.0 G/DL) 10.7 L Hct (42 - 52 %) 32.6 L MCV (80.0 - 94.0 FL) 83.5 MCH (27.0 - 31.0 PG) 27.5 MCHC (33.0 - 37.0 G/DL) 32.9 L RDW (11.5 - 14.5 %) 14.2 Plt Count (130 - 400 /CUMM) 239 MPV (7.4 - 10.4 FL) 6.9 L Gran % (42.2 - 75.2 %) 60.8 Lymphocytes % (20.5 - 51.1 %) 29.4 Monocytes % (1.7 - 9.3 %) 7.1 Eosinophils % (0 - 5 %) 2.3 Basophils % (0.0 - 2.0 %) 0.4 Absolute Granulocytes (1.4 - 6.5 /CUMM) 4.5 Absolute Lymphocytes (1.2 - 3.4 /CUMM) 2.2 Absolute Monocytes (0.10 - 0.60 /CUMM) 0.5 Absolute Eosinophils (0.0 - 0.7 /CUMM) 0.2 Absolute Basophils (0.0 - 0.2 /CUMM) 0 Immunology Rheum Factor Semi-Quant (<12 IU/Ml) < 8.6 Last 24 Hours of Herman Results: Blood cultures 2 February 18 remain negative Right upper extremity biopsy culture February 20 no growth after one day Assessment/Plan ID Impression: Clinically stable, with temperatures and white blood cell count remaining normal , now on Levaquin, begun yesterday for the possibility of ecthyma gangrenosum, pending results of the skin biopsy, which was done yesterday, with the culture so far negative. Other possible etiologies include pyoderma gangrenosum, Lyme disease or a spider bite. Suggestion: 1. Follow-up skin biopsy pathology and culture 2. Check rheumatoid factor 3. Continue Levaquin pending above
--- NOTE | 2018-02-21 12:50 | Patient Discharge Instructions ---
Discharge Instructions General Discharge Information Special Instructions: Please follow up with your pcp in 1 week. Acute Coronary Syndrome Inclusion Criteria At DC or during hospital stay patient has or had the following: ACS DIAGNOSIS No Discharge Core Measures Meds if any: Prescribed or Continued at Discharge Meds if any: NOT Prescribed or Continued at Discharge Congestive Heart Failure Inclusion Criteria At DC or during hospital stay patient has or had the following: CHF DIAGNOSIS No Discharge Core Measures Meds if any: Prescribed or Continued at Discharge Meds if any: NOT Prescribed or Continued at Discharge Cerebrovascular accident Inclusion Criteria At DC or during hospital stay patient has or had the following: CVA/TIA Diagnosis No Discharge Core Measures Meds if any: Prescribed or Continued at Discharge Meds if any: NOT Prescribed or Continued at Discharge Venous thromboembolism Inclusion Criteria VTE Diagnosis No VTE Type NONE VTE Confirmed by (Test) NONE Discharge Core Measures - Per Current guidelines, there needs to be overlap - treatment for the first 5 days of Warfarin therapy. - If discharged on Warfarin prior to 5 days of - overlap therapy, the patient will need to be - assessed for post discharge needs including - *Post discharge parental anticoagulation - *Warfarin and/or parental anticoagulation education - *Follow up date to check INR post discharge At least 5 days overlap therapy as Inpatient No Meds if any: Prescribed or Continued at Discharge Note: Overlap Therapy is Warfarin and Anticoagulant Meds if any: NOT Prescribed or Continued at Discharge
[2018-02-21] MEDS ORDERED: METHADONE HCL10 M1 PO (12:54)
--- NOTE | 2018-02-21 13:09 | PN- Student ---
Subjective Subjective: Patient states that his arm is getting worse. He complains that he is not receiving appropriate care and that it has not been fast enough. He wants to be discharged so that he could go to [facility] and be admitted there. He also states that he stepped on a needle/staple? last night. ROS: See HPI Objective Objective: Vital Signs Date Time Temp Pulse Resp B/P B/P Pulse O2 O2 Flow FiO2 Mean Ox Delivery Rate 02/21 0634 98.0 72 18 121/73 92 Room Air 02/20 2200 98.3 90 20 146/99 94 Room Air 02/20 1445 97.9 99 20 150/78 95 Room Air 02/20 0648 97.9 79 18 124/62 91 02/19 2159 98.6 79 20 130/64 93 Room Air 02/19 1455 98.1 90 20 118/76 94 Room Air 02/19 0654 98.4 65 18 106/64 97 Trach Mask 02/18 2214 98.0 75 20 130/70 94 Room Air 02/18 2149 Room Air 02/18 2107 97.8 72 18 141/89 96 Room Air 02/18 1557 98.9 98 16 97 Room Air Physical exam General appearance: Patient was alert, cooperative and oriented x3 Cardiovascular: regular rate, S1 & S2 heard, no additional sounds Lungs: Normal vesicular sounds Abdomen: Normal Extremities: erythema in right arm surrounding a black eschar, increased bullae in the necrotic tissue and edema localized in the lateral epicondyle. Region of erythema seems to be increasing. Current Medications Sig/Shelbie Start time Last Medication Dose Route Stop Time Status Admin Levofloxacin 750 MG 02/20 AC 02/20 PO 2125 Methadone HCl 65 MG DAILY 02/20 0700 AC 02/21 PO 05 Clonazepam 1 MG AT BEDTIME 02/19 2200 AC 02/20 PO 02/26 Ampicillin Sodium/ 3,000 MG Q6 02/19 1800 DC 02/20 Sulbactam Sodium IV 1352 Sodium Chloride 100 ML Nicotine 21 MG DAILY 02/19 1100 AC 02/21 TOP 0939 Enoxaparin Sodium 40 MG DAILY 02/19 1000 AC 02/21 SC 0938 Gabapentin 300 MG TID 02/19 1000 AC 02/21 PO 0937 Tramadol HCl 50 MG Q6 PRN 02/19 0515 AC 02/21 PO 1042 Acetaminophen 650 MG Q4P PRN 02/19 0345 AC PO Orders Procedure Date/time Status CBC WITHOUT DIFFERENTIAL 02/22 0600 Active RHEUMATOID FACTOR 02/21 0600 Complete CBC WITHOUT DIFFERENTIAL 02/21 0600 Complete BASIC ELECTROLYTES PLUS BUN&CR 02/21 0600 Complete Discharge Patient 02/21 UNK Active EXTREMETIES CULTURE 02/20 193 Active PATHOLOGY SPECIMEN 02/20 193 Complete Change service to 02/20 0841 Active CBC WITHOUT DIFFERENTIAL 02/20 0600 Complete Regular Diet 02/19 D Active Heart Healthy Diet 02/19 B Complete RHEUMATOID FACTOR 02/19 1343 Complete LYME TITRE 02/19 1343 Complete WESTERGREN SED RATE 02/19 1343 Complete ANTINUCLEAR ANTIBODY 02/19 1343 Complete Lab Add-on Test 02/19 0600 Active HIV (Reflex to HIVCQ) 02/19 0600 Complete HEPATITIS PANEL 02/19 0600 Complete CREATINE PHOSPHOKINASE 02/19 0600 Complete CBC WITHOUT DIFFERENTIAL 02/19 0600 Complete BASIC ELECTROLYTES PLUS BUN&CR 02/19 0600 Complete MISSING MEDICATION FORM 02/19 0459 Active Lab Add-on Test 02/19 UNK Active PHARMACY COMMUNICATION FORM 02/19 UNK Active MISSING MEDICATION FORM 02/19 UNK Active URINE DRUGS OF ABUSE 02/18 2233 Complete Pathway - chart 02/18 2224 Active Weight 02/18 2144 Complete Vital Signs 02/19 2144 Active Teach/Educate 02/19 2144 Active Pain Treatment and Response 02/19 2144 Active Nutritional Intake, Monitor 02/18 214 Active Isolation 02/18 214 Active Intake & Output 02/18 214 Active Patient Care Conference 02/18 214 Active Activity/Ambulation 02/18 214 Active Intake & Output 02/18 203 Active Patient Data 02/19 2020 Active ED Holding Orders 02/18 2002 Active Admit to inpatient 02/18 2002 Active Vital Signs 02/18 2002 Active Code Status 02/18 2002 Active Add-on Test (ER Only) 02/18 195 Active EKG 02/18 1744 Active CREATINE PHOSPHOKINASE 02/18 1605 Complete BLOOD CULTURE 02/18 1557 Active COMPREHENSIVE METABOLIC PANEL 02/18 1557 Complete CBC WITHOUT DIFFERENTIAL 02/18 1557 Complete House Staff 02/18 UNK Active VTE Mechanical Prophylaxis 02/18 UNK Active Vital Signs 02/18 UNK Complete Imaging: - Popliteal fossa ultrasound: Superficial edema and thickening of the subcutaneous tissues is seen without focal fluid collection. - Humerus X-Ray: No acute osseous abnormality. No gas visible in the soft tissues of the right arm. Results Results: Laboratory Tests 02/21/18 0745: Anion Gap 11, Estimated GFR > 60, BUN/Creatinine Ratio 19.0, CBC w Diff NO MAN DIFF REQ, RBC 3.90 L, MCV 83.5, MCH 27.5, MCHC 32.9 L, RDW 14.2, MPV 6.9 L, Gran % 60.8, Lymphocytes % 29.4, Monocytes % 7.1, Eosinophils % 2.3, Basophils % 0.4, Absolute Granulocytes 4.5, Absolute Lymphocytes 2.2, Absolute Monocytes 0.5 , Absolute Eosinophils 0.2, Absolute Basophils 0, Rheum Factor Semi-Quant < 8.6 02/20/18 0600: CBC w Diff NO MAN DIFF REQ, RBC 3.91 L, MCV 83.3, MCH 27.5, MCHC 33.0, RDW 14.9 H, MPV 7.1 L, Gran % 56.7, Lymphocytes % 31.9, Monocytes % 7.8, Eosinophils % 3.1, Basophils % 0.5, Absolute Granulocytes 3.8, Absolute Lymphocytes 2.2, Absolute Monocytes 0.5, Absolute Eosinophils 0.2, Absolute Basophils 0 02/19/18 1436: Rheum Factor Semi-Quant < 8.6 02/19/18 1436: ESR Westergren 65 H, AWILDA Titer ND, Anti-Nuclear Antibody NEG 1:40 IFA ASSAY, Lyme Disease Antibody 0.18 02/19/18 0605: Anion Gap 12, Estimated GFR > 60, BUN/Creatinine Ratio 28.8 H, Creatine Kinase 21 L, CBC w Diff NO MAN DIFF REQ, RBC 4.17 L, MCV 82.7, MCH 27.8, MCHC 33.6, RDW 15.1 H, MPV 7.3 L, Gran % 56.7, Lymphocytes % 30.1, Monocytes % 9.7 H, Eosinophils % 3.1, Basophils % 0.4, Absolute Granulocytes 3.6, Absolute Lymphocytes 1.9, Absolute Monocytes 0.6, Absolute Eosinophils 0.2, Absolute Basophils 0, Hepatitis A IgM Ab NONREACTIVE, Hep Bs Antigen NONREACTIVE, Hep B Core IgM Ab Conf NONREACTIVE, Hepatitis C Antibody NONREACTIVE, HIV 1&2 Ab Western Blot NONREACTIVE 02/19/18 0025: Urine Opiates Screen > 4000.00 H, Methadone Screen > 735 H, Barbiturate Screen < 60, Ur Phencyclidine Scrn < 6.00, Amphetamines Screen 114, U Benzodiazepines Scrn < 85, Urine Cocaine Screen < 50, Urine Cannabis Screen < 5.00 02/18/18 1857: Lactic Acid Cancelled 02/18/18 1605: Anion Gap 15, Estimated GFR > 60, BUN/Creatinine Ratio 23.3, Glucose 104 H, Calcium 9.6, Total Bilirubin 0.5, AST 20, ALT 43, Alkaline Phosphatase 120, Creatine Kinase 33 L, Total Protein 8.3 H, Albumin 4.3, Globulin 4.0, Albumin/ Globulin Ratio 1.1, CBC w Diff NO MAN DIFF REQ, RBC 4.94, MCV 83.2, MCH 26.5 L, MCHC 31.8 L, RDW 14.7 H, MPV 7.0 L, Gran % 60.5, Lymphocytes % 27.2, Monocytes % 9.8 H, Eosinophils % 2.2, Basophils % 0.3, Absolute Granulocytes 4.7, Absolute Lymphocytes 2.1, Absolute Monocytes 0.8 H, Absolute Eosinophils 0.2, Absolute Basophils 0 Microbiology 02/21 1940 EXTREMITIE: AFB Culture with PCR Identification - CAN Cancelled: SPECIMEN QNS 02/21 1940 EXTREMITIE: AFB Smear Concentration - CAN Cancelled: SPECIMEN QNS 02/21 1940 EXTREMITIE: Culture & Sensitivity - RES 02/21 1940 EXTREMITIE: Gram Stain - RES 02/21 1940 EXTREMITIE: Fungal Culture - CAN Cancelled: DUPLICATED 02/21 1940 EXTREMITIE: Fungal Culture - CAN Cancelled: SPECIMEN QNS 02/20 1939 EXTREMITIE: Gross Specimen Examination - CAN Cancelled: DUPLICATE ORDERS; NOT FROM OR. 02/20 1939 EXTREMITIE: Gram Stain - CAN Cancelled: DUPLICATE ORDERS; NOT FROM OR. 02/18 1605 BLOOD: Blood Culture - RES 02/18 1600 BLOOD: Blood Culture - RES Assessment/Plan Assessment: Antonio Charles is a 37 y/o with a past medical history signifant for IV drug use (currently on methadone at [facility]), depression, anxiety, ADHD, OA, chronic pain disorder and disc herniation, whose CC is a black area of necrosis surrounded by erythema and associated tenderness. Patient was seen by Dr. Contreras and he thinks it could be ecthyma gangrenosum, pyoderma gangrenosum or a spider bite. We are waiting for the results of the skin biopsy which was done yesterday. Patient's antibiotic was changed to Levaquin. 1. Eschar surrounded by erythema and covered in bullae - Follow up skin biopsy & culture - Wait for any growth (if any) in the patient's blood culture sample - Considerate dermatology consult - Continue Levaquin - Manage the pain 2. Heroine dependece - Continue with the administration of methadone 3. Chronic pain - Continue medications as needed 4. Psychiatry - Continue with his home medications
--- NOTE | 2018-02-23 23:16 | Discharge Summary ---
Visit Information Visit Dates Admission Date: 02/18/18 Discharge Date: 02/21/18 Hospital Course Course Attending Physician: Yasmeen Simon MD Primary Care Physician: Kodi Mccann MD Hospital Course: A: 37 yo m with a PMH significant for IV drug abuse on methadone ([facility]) , chronic pain disorder, depression, anxiety, OA, and disc herniation who presents to the ED with a suspected insect bite vs IV drug use causing necrosis of his lateral RUE. Problems 1. Right arm cellulitis vs necrosis - maybe secondary to insect bite vs IV drug use ?ecthyma gangrenosum The patient presented with an acute onset of necrosis of his R lateral arm. He was treated with IV unasyn which did not improve his symptoms. Ultrasound did not reveal any fluid collection and x-ray did not show any bone changes or subcutaenous emphysema. US did have findings consistent with cellulitis. A biopsy was obtained which revealed no growth after 3 day. ESR was elevated at 65. Lyme titer, rheumatoid factor, AWILDA, blood cx, hepatitis, and HIV were negative. We contacted dermatology who thought the differential included coagulopathy from levamisole via IVDU, burn, or a brown recluse bite. They believe his lesions is more likely due to levamisole adverse effects. The patient left AMA to [place] for further testing. He was given 4 days of levofloxacin to complete a total 7 day antibiotic course. 2. Nicotine dependence Started Nicotine patch 3. IVDU on methadone Continued confirmed methadone dosage at 65mg daily. 4. Hx of anxiety Continued clonazepam 5. Hx of chronic pain Continued gabapentin Allergies: Coded Allergies: NO KNOWN ALLERGIES (10/29/17) Disposition Summary Disposition Principal Diagnosis: Right arm cellulitis vs necrosis - maybe secondary to insect bite vs IV drug use ?ecthyma gangrenosum Additional Diagnosis: none Discharge Disposition: left against medical adv Discharge Instructions General Discharge Information Code Status: Full Code Patient's Diet: Regular Patient's Activity: As tolerated Follow-Up Instructions/Appts: Please follow up with your pcp in 1 week. Medications at Discharge Discharge Medications: Stop taking the following medications: Methadone Hydrochloride (Methadone HCl) 10 MG TABLET ORAL Every Day Cyclobenzaprine HCl (Cyclobenzaprine HCl) 10 MG TABLET ORAL Every night as needed for muscle strain Qty = 12 Continue taking these medications: Clonazepam (Clonazepam) 1 MG TABLET 1 Tablet ORAL Every night as needed Qty = 60 Comments: LAST GIVEN 02/20/18 Time: 9 pm Eletriptan HBr (Relpax) 40 MG TABLET 1 Tablet ORAL as needed for MIGRAINES Qty = 10 Ibuprofen (Ibuprofen) 800 MG TABLET 1 Tablet ORAL THREE TIMES A DAY NEEDED Qty = 60 Gabapentin (Gabapentin) 300 MG CAPSULE 1 Capsule ORAL THREE TIMES DAILY Qty = 90 Comments: Last Taken: 02/21 Time: 930 am Tylenol With Codeine (Tylenol With Codeine #3 Tablet) 300 MG-30 MG TABLET 1 Tablet ORAL 2 x Daily as needed as needed for pain Qty = 10 Start taking the following new medications: Methadone Hydrochloride (Methadone HCl) 10 MG TABLET 6.5 Tablet ORAL DAILY Qty = 1 No Refills Comments: Last Taken: 02/21 Time: 530 am Copies To: Ramy ENCIANS,oKdi Ratliff
== END 2018-02-21 13:36 | disposition left against medical advice (07) | DRG 383 ==
LOC: ERH 15:01 → 2NB 20:02 → ERHI 20:02 → ENRESERV 20:41 → ENTRNSPT 21:19 → 2NB 21:46 → CMPTRNSPT 21:50 → 2NB 21:51
PROVIDERS: Internal Medicine; Physician Assistant
DX: L03.113 Cellulitis of right upper limb (principal); F19.20 Other psychoactive substance dependence, uncomplicated; F11.20 Opioid dependence, uncomplicated; G89.4 Chronic pain syndrome; M91.11 Juvenile osteochondrosis of head of femur [Legg-Calve-Perthes], right leg; F17.210 Nicotine dependence, cigarettes, uncomplicated; F32.9 Major depressive disorder, single episode, unspecified; F41.9 Anxiety disorder, unspecified; G47.00 Insomnia, unspecified; G62.9 Polyneuropathy, unspecified; Z96.641 Presence of right artificial hip joint; W22.8XXA Striking against or struck by other objects, initial encounter; Y92.239 Unspecified place in hospital as the place of occurrence of the external cause
CPT/HCPCS: 2NSBP; 86618; 87070; 87075; 36592; 73060-RT; 76881; 80307; 82436; 86431; 87040; 87389; 93005; 93010; 96374; 96375; J0131; J1650; J1885